=== PATIENT | female | born 1975 | race Two or more races ===

== ENCOUNTER 2016-02-23 12:32 | Emergency (ER) | payer OTHER ==
[~2016-02-23] VITALS: Ht 157.5 cm; Wt 68.0 kg
[2016-02-23] MEDS ORDERED: DIAZEPAM 5 MG TABLET PO ONE ×2 (13:30→16:00)
[2016-02-23] MEDS ORDERED: ACETAMINOPHEN 650 MG/20.3 ML UDC PO ONE (13:30)
[2016-02-23] MEDS ORDERED: ACETAMINOPHEN ES 500 MG TABLET ONE (13:41)
[2016-02-23] MEDS ORDERED: DIAZEPAM 5 MG TABLET ONE ×2 (14:18→15:44)
[2016-02-23] MEDS ORDERED: MORPHINE SULFATE INJ 4 MG/ML DISP.SYRIN ONE (15:44)
[2016-02-23] MEDS ORDERED: IBUPROFEN 600 MG TABLET PO ONE ×2 (15:44→16:00)
[2016-02-23] MEDS ORDERED: MORPHINE SULFATE INJ 4 MG/ML DISP.SYRIN IM ONE (16:00)
[2016-02-23] MEDS ORDERED: ONDANSETRON 4 MG TAB.RAPDIS ONE (17:28)
[2016-02-23] MEDS ORDERED: ONDANSETRON 4 MG TAB.RAPDIS SL ONE (17:30)
[2016-02-23 19:17] VITALS: BP 128/88
== END 2016-02-23 19:18 | disposition home or self-care (01) ==
LOC: ER 12:33
DX: S39.012A Strain of muscle, fascia and tendon of lower back, initial encounter (principal); S46.912A Strain of unspecified muscle, fascia and tendon at shoulder and upper arm level, left arm, initial encounter; S13.4XXA Sprain of ligaments of cervical spine, initial encounter; S80.02XA Contusion of left knee, initial encounter; V49.40XA Driver injured in collision with unspecified motor vehicles in traffic accident, initial encounter; Y93.89 Activity, other specified; Y92.413 State road as the place of occurrence of the external cause; Y99.8 Other external cause status
CPT/HCPCS: 70450; 71010; 72125; 72128; 72131; 72170; 72192; 73060; 73564; 84703; 96372; 99284; A4606; J2270; L0172; Q0162; Z7610

== ENCOUNTER 2023-09-12 00:23 | Emergency (ER) | payer BC, MEDICAID, OTHER ==
[~2023-09-12] VITALS: Ht 157.5 cm; Wt 82.1 kg
[2023-09-12 00:47] LABS: ADD URINE CULTURE NO; APPEARANCE,URINE SLIGHTLY CLOUDY (CLEAR); BACTERIA,URINE Rare /HPF (None Seen); BILIRUBIN,URINE NEGATIVE (NEGATIVE); BLOOD, URINE TRACE-INTA Ery/uL (NEGATIVE); COLOR,URINE YELLOW (YELLOW); KETONES,URINE TRACE mg/dL (NEGATIVE); LEUKOCYTE ESTERASE ,URINE NEGATIVE (NEGATIVE); NITRITE, URINE NEGATIVE (NEGATIVE); PREGNANCY TEST URINE QUAL NEGATIVE (NEGATIVE); PROTEIN,URINE TRACE mg/dl (NEGATIVE); SQUAMOUS EPITHELIAL CELL,UR Rare /HPF (None Seen); UGLUCOSE NEGATIVE (NEGATIVE); UROBILINOGEN,URINE 0.2 EU/dL (0.2); WBC,URINE 0-2 /HPF (0-3)
[2023-09-12 01:14] VITALS: BP 120/71; TEMP 97.6; O2SAT 98
== END 2023-09-12 01:15 | disposition home or self-care (01) ==
LOC: ER 00:25
DX: R30.0 Dysuria (principal); L84 Corns and callosities; Z60.2 Problems related to living alone
CPT/HCPCS: 81001; 84703-TC